=== PATIENT | male | born 1975 | race Caucasian/White ===

== ENCOUNTER 2017-01-29 03:05 | Emergency (ER) | payer SELFPAY ==
[~2017-01-29 03:05] MED LIST: BACTRIM DS TABL1 TA1 PO; BROMFED DM COU118 ML PO; DELTASONE20 MG PO; ERYTHROMYCIN O3.5 GM OD; FLEXERIL10 MG PO; NAPROSYN500 MG PO; NO MEDICATIONS; VENTOLIN5 MG/ML INH; VOLTAREN50 MG PO; VOLTAREN75 MG PO; ZOFRANODT PO
[2017-01-29] MEDS ORDERED: CLEOCIN HCL300 M1 PO (03:57)
[2017-01-29] MEDS ORDERED: VOLTAREN75 MG PO (03:57)
[2017-01-31] MEDS ORDERED: NORCO 7.5-3251 EACH PO (09:47)
== END 2017-01-29 03:57 | disposition home or self-care (01) ==
LOC: SED 03:05
DX: L02.31 Cutaneous abscess of buttock (principal); F17.200 Nicotine dependence, unspecified, uncomplicated; Z98.890 Other specified postprocedural states; Z79.1 Long term (current) use of non-steroidal anti-inflammatories (NSAID)
CPT/HCPCS: 99283

== ENCOUNTER → 2017-01-31 | Day surgery (SDC) | payer SELFPAY ==
[~2017-01-31] MED LIST changes: +CLEOCIN HCL300 M1 PO; +NORCO 7.5-3251 EACH PO
--- NOTE | ~2017-01-31 | OR ---
Unit #: [id number] #: [id number] Patient: FEDE BRENNAN JR [id number] [address] [place], [place] [address] [id number] MR#: [id number] NAME: FEDE BRENNAN JR ROOM: Date of Procedure: 01/31/2017 Admission Date: 01/31/2017 Surgeon: David Vazquez Jr., M.D. : 1975 Attending Physician: David Vazquez Jr., M.D. OPERATIVE REPORT INDICATIONS FOR PROCEDURE The patient is a 41-year-old white male, who presented to the office yesterday complaining of severe perianal pain and on examination, he was noted to have what appeared to be a perianal abscess approximately the size of a golf ball. He is brought to the operating room at this time for incision and drainage of this under general anesthesia. PREOPERATIVE DIAGNOSIS Large perianal abscess. POSTOPERATIVE DIAGNOSIS Approximately a 6 cm abscess on the right perianal region with no evidence of any extension along the rectum. ANESTHESIA General with LMA. PROCEDURE PERFORMED Sharp excisional debridement with incision and drainage of right perianal abscess using #10 blade scalpel down to the deeper subcutaneous tissue. DESCRIPTION OF PROCEDURE The patient was positioned in supine position. After being anesthetized, he was placed in lithotomy position, prepped and draped in routine fashion for incision and drainage of his perianal abscess. The abscess was very apparent and about size of a golf ball. An incision was made in the most fluctuant portion of the abscess and white pus was obtained for cultures for aerobic and anaerobic organisms. The finger tip was introduced into the abscess and was tunneled more anterior than posterior and the sides of the wound itself were then excised with a #10 blade scalpel down to the deeper subcutaneous tissue. The entire sharp excisional debridement was performed with a #10 blade scalpel. After all necrotic tissue was removed, the wound was irrigated. Hemostasis was achieved with Bovie cautery and the wound packed open with Betadine moist dry dressings. Sterile dressings were applied externally. Estimated blood loss less than 50 mL. The patient received less than 1000 mL crystalloid solution during the procedure. Sponges and instruments counts were correct x3. No drains were used. No complications. The patient was taken to the recovery room with stable vital signs in satisfactory condition. Dictated by... Unit #: [id number] #: [id number] Patient: FEDE BRENNAN JR, Jr., M.D. JMB/jessica TD: 02/01/2017 04:08 JOB #: [id number] OPERATIVE REPORT Page 1 of 1 X David Vazquez MD X PROCEDURE OPERATIVE NOTE
== END | disposition home or self-care (01) ==
LOC: CSUR 09:23
DX: K61.0 Anal abscess (principal); F17.210 Nicotine dependence, cigarettes, uncomplicated; Z87.442 Personal history of urinary calculi; Z87.09 Personal history of other diseases of the respiratory system; Z79.2 Long term (current) use of antibiotics; Z98.890 Other specified postprocedural states
CPT/HCPCS: 87070; 87075; 87205; J1100; J2250; J2270; J2543; J2765